=== PATIENT | male | born 1995 | race Caucasian/White ===

== ENCOUNTER → 2016-12-10 | Outpatient (REF) | payer OTHER | LOC: M LAB REF 10:19 | PROVIDERS: ATTEND Physician Assistant Medical | DX: J02.9 Acute pharyngitis, unspecified (principal) ==

== ENCOUNTER → 2017-04-29 | Outpatient (REF) | payer OTHER | LOC: M LAB REF 21:16 | DX: J11.1 Influenza due to unidentified influenza virus with other respiratory manifestations (principal) ==

== ENCOUNTER 2018-03-30 22:56 | Emergency (ER) | payer OTHER ==
[~2018-03-30] VITALS: Ht 185.4 cm; Wt 113.6 kg
[2018-03-30] MEDS ORDERED: CHLO1.4S2 MT (23:44)
[2018-03-30] MEDS ORDERED: LIDOCAINE VISCOUS 2% SOLN 15ML UDC SS ONE (23:45)
[2018-03-30 23:53] VITALS: BP 142/96
== END 2018-03-30 23:57 | disposition home or self-care (01) ==
LOC: M ED 22:56
DX: J02.8 Acute pharyngitis due to other specified organisms (principal); B96.89 Other specified bacterial agents as the cause of diseases classified elsewhere

== ENCOUNTER 2023-08-19 05:52 | Emergency (ER) | payer OTHER, SELFPAY ==
[~2023-08-19] VITALS: Ht 182.9 cm; Wt 96.1 kg
[2023-08-19 05:52] VITALS: BP 136/75; TEMP 97.4; O2SAT 100
[~2023-08-19 05:52] MED LIST: CHLO1.4S7 MT
[2023-08-19] MEDS ORDERED: IBUP80TA PO (05:58)
[2023-08-19] MEDS ORDERED: AMOX875T2 PO (06:54)
== END 2023-08-19 07:02 | disposition home or self-care (01) ==
LOC: M ED 05:52
DX: K04.7 Periapical abscess without sinus (principal); F17.210 Nicotine dependence, cigarettes, uncomplicated; Z79.1 Long term (current) use of non-steroidal anti-inflammatories (NSAID); Z79.2 Long term (current) use of antibiotics

== ENCOUNTER 2024-01-16 08:53 | Emergency (ER) | payer SELFPAY ==
[~2024-01-16] VITALS: Ht 182.9 cm; Wt 90.5 kg
[~2024-01-16 08:53] MED LIST changes: +AMOX875T2 PO; +IBUP80TA PO
[2024-01-16] MEDS ORDERED: AMOX875T2 PO (11:02)
[2024-01-16] MEDS: AUGMENTIN 875 MG TAB PO ONE (11:15)
[2024-01-16 11:26] LABS: BASO # 0.1 10^3/uL (0.0-0.2); BASO % 0.7 % (0.0-1.0); EOS # 0.1 10^3/uL (0.0-0.5); EOS % 0.8 % (0.0-3.0); HEMATOCRIT 47.5 % (42.0-52.0); HEMOGLOBIN 16.5 g/dl (13.5-17.5); LYMPH # 0.9 10^3/uL (1.5-5.0); LYMPH % 10.7 % (24.0-44.0); MEAN CORPUSCULAR HEMOGLOBIN 29.9 pg (27.0-33.0); MEAN CORPUSCULAR HGB CONC 34.7 g/dl (32.0-36.5); MEAN CORPUSCULAR VOLUME 86.1 fl (80.0-96.0); MONO # 0.6 10^3/uL (0.0-0.8); MONO % 6.7 % (2.0-8.0); NEUTROPHILS # 6.8 10^3/uL (1.5-8.5); NEUTROPHILS % 80.7 % (36.0-66.0); PLATELET COUNT, AUTOMATED 202 10^3/uL (150-450); RED BLOOD COUNT 5.52 10^6/uL (4.30-6.10); WHITE BLOOD COUNT 8.4 10^3/uL (4.0-10.0)
[2024-01-16 11:37] LABS: INR 0.98; PARTIAL THROMBOPLASTIN TIME 25.3 SECONDS (24.8-34.2); PROTHROMBIN TIME 13.3 SECONDS (12.5-14.5)
[2024-01-16 11:50] LABS: BLOOD UREA NITROGEN 8 MG/DL (9-23); CALCIUM LEVEL 9.3 MG/DL (8.5-10.1); CARBON DIOXIDE LEVEL 28 MMOL/L (20-31); CHLORIDE LEVEL 106 MMOL/L (98-107); CREATININE FOR GFR 0.85 MG/DL (0.70-1.30); GLOMERULAR FILTRATION RATE > 60.0 (>60); GLUCOSE, FASTING 92 MG/DL (60-100); POTASSIUM SERUM 4.5 MMOL/L (3.5-5.1); SODIUM LEVEL 138 MMOL/L (136-145)
[2024-01-16 12:32] VITALS: BP 129/68; TEMP 99.4; O2SAT 96
== END 2024-01-16 12:34 | disposition home or self-care (01) ==
LOC: M ED 08:53
DX: J03.90 Acute tonsillitis, unspecified (principal); J01.90 Acute sinusitis, unspecified; F17.210 Nicotine dependence, cigarettes, uncomplicated; Z79.2 Long term (current) use of antibiotics